=== PATIENT | female | born 1990 | race African-American/Black ===

== ENCOUNTER → 2020-03-01 13:07 | Outpatient (BNVA) | payer MEDICARE, MEDICAID, SELFPAY | PROVIDERS: PCP Nurse Practitioner Adult Health; Visit Provider Student in an Organized Health Care Education/Training Program | DX: Z76.89 Persons encountering health services in other specified circumstances (principal) | CPT/HCPCS: Q3014 ==

== ENCOUNTER 2020-03-02 16:30 | Outpatient (REF) | payer MEDICARE, MEDICAID, SELFPAY ==
[2020-03-02 17:27] LABS: Alanine Aminotransferase 11 U/L (0-31); Albumin Level 2.3 g/dL (3.5-5.0); Alkaline Phosphatase 87 U/L (39-117); Anion Gap 10 (12-20); Aspartate Amino Transferase 22 U/L (5-31); Bilirubin Total 0.3 mg/dL (0.0-1.0); Blood Urea Nitrogen 9 mg/dL (9-16); Calcium 7.8 mg/dL (8.4-10.2); Carbon Dioxide 28 mmol/L (22-29); Chloride 105 mmol/L (96-108); Estimated Glomerular Filt Rate > 60; Glucose Random 67 mg/dL (60-115); Sodium 139 mmol/L (135-145); Total Protein 6.7 g/dL (6.5-8.0)
[2020-03-02 17:55] LABS: Hematocrit 28.9 % (37-47); Hemoglobin 8.8 g/dl (12.0-16.0); Imm Gran Abs Auto 0.01 X10*3/uL (0.00-0.03); Imm Gran Pct Auto 0.3 % (0.0-0.4); Lymphocytes Absolute Auto 0.9 X10*3/uL (1.2-4.9); Lymphocytes Percent Auto 30.1 % (20-40); MANUAL DIFF FLAG SCAN; Mean Corpuscular HGB Conc 30.4 g/dl (31.0-35.0); Mean Corpuscular Hemoglobin 27.3 pg (27.0-33.0); Mean Corpuscular Volume 89.8 fL (80-98); Mean Platelet Volume 10.8 fL (9.4-12.3); Monocytes Absolute Auto 0.2 X10*3/uL (0.1-1.2); Monocytes Percent Auto 7.4 % (2-11); Neutrophils Absolute Auto 1.9 X10*3/uL (2.0-8.3); Neutrophils Percent Auto 62.2 % (45-73); Platelet Count 224 X10*3/uL (160-400); Red Blood Count 3.22 X10*6/uL (4.20-5.50); Red Cell Distribution Width 17.2 % (11.0-16.0); SCAN SMEAR FLAG 1
[2020-03-02 18:13] LABS: SLIDE REVIEW VERIFIED
[2020-03-02 19:03] LABS: Erythrocyte Sedimentation Rate 106 MM/HR (0-20)
[2020-03-02 19:18] LABS: Creatinine Urine 83.56 mg/dL
[2020-03-02 19:25] LABS: Glucose Urine UA NEG (NEG); Leukocyte Esterase Urine NEG (NEG); Nitrite Urine NEG (NEG); Urine Blood TRACE (NEG); Urine Ketones NEG (NEG); Urine Protein 3+ MG/DL (NEG-TRACE)
[2020-03-02 19:30] LABS: Appearance Urine CLEAR; Color Urine YELLOW
[2020-03-02 19:33] LABS: Protein/Creatinine Ratio, Ur 8.66 (<0.2); Total Protein Urine Random 724 mg/dL (<12)
[2020-03-02 19:46] LABS: Squamous Epithelial Cell Urine 1+ /LPF
[2020-03-03 12:53] LABS: Anti DNA DS Antibody 110 IU/mL
[2020-03-03 13:17] LABS: Complement C3 51 mg/dL (83-193)
== END 2020-03-02 16:31 | disposition home or self-care (01) ==
LOC: HO.LAB 16:30
PROVIDERS: Visit Provider Student in an Organized Health Care Education/Training Program
DX: M32.9 Systemic lupus erythematosus, unspecified (principal)
CPT/HCPCS: 36415; 80053; 81001; 84156; 85025; 85652; 86140; 86160; 86225

== ENCOUNTER → 2020-03-23 14:19 | Outpatient (BNVA) | payer MEDICARE, MEDICAID, SELFPAY | PROVIDERS: PCP Nurse Practitioner Adult Health; Visit Provider Student in an Organized Health Care Education/Training Program | DX: Z13.89 Encounter for screening for other disorder (principal) | CPT/HCPCS: Q3014 ==

== ENCOUNTER 2020-03-29 10:01 | Outpatient (REF) | payer MEDICARE, MEDICAID, SELFPAY ==
--- NOTE | 2020-03-29 10:08 | XR_ITS ---
EXAMINATION: XR FOOT, LEFT CLINICAL INFORMATION: Lupus COMPARISON: None TECHNIQUE: AP, lateral, and oblique views of the left foot. FINDINGS: Bone alignment is normal. No fracture or dislocation is seen. Joint spaces are normal. No erosions are seen. Soft tissues are normal. XR/XR foot LT 2V IMPRESSION: Normal left foot.
[2020-03-29 10:59] LABS: MANUAL DIFF FLAG NO
[2020-03-29 11:02] LABS: Eosinophils Percent Auto 0.3 % (0-4); Hematocrit 32.6 % (37-47); Imm Gran Abs Auto 0.03 X10*3/uL (0.00-0.03); Imm Gran Pct Auto 0.5 % (0.0-0.4); Lymphocytes Absolute Auto 1.1 X10*3/uL (1.2-4.9); Lymphocytes Percent Auto 19.4 % (20-40); Mean Corpuscular HGB Conc 30.7 g/dl (31.0-35.0); Mean Corpuscular Hemoglobin 28.2 pg (27.0-33.0); Mean Corpuscular Volume 92.1 fL (80-98); Mean Platelet Volume 10.6 fL (9.4-12.3); Monocytes Absolute Auto 0.4 X10*3/uL (0.1-1.2); Monocytes Percent Auto 6.8 % (2-11); Neutrophils Absolute Auto 4.3 X10*3/uL (2.0-8.3); Platelet Count 209 X10*3/uL (160-400); Red Blood Count 3.54 X10*6/uL (4.20-5.50); Red Cell Distribution Width 16.8 % (11.0-16.0); White Blood Count 5.9 X10*3/uL (4.8-10.8)
[2020-03-29 11:11] LABS: Glucose Urine UA NEG (NEG); Leukocyte Esterase Urine TRACE (NEG); Nitrite Urine NEG (NEG); Urine Blood 3+ (NEG); Urine Ketones NEG (NEG); Urine Protein 3+ MG/DL (NEG-TRACE)
[2020-03-29 11:15] LABS: Appearance Urine HAZY; Color Urine YELLOW
[2020-03-29 11:27] LABS: Amorphous Sediment Urine 1+ /LPF; Bacteria Urine 1+ /LPF; Squamous Epithelial Cell Urine 1+ /LPF
[2020-03-29 11:39] LABS: Creatinine Urine 69.32 mg/dL
[2020-03-29 11:45] LABS: Alanine Aminotransferase 17 U/L (0-31); Albumin Level 2.2 g/dL (3.5-5.0); Alkaline Phosphatase 75 U/L (39-117); Anion Gap 13 (12-20); Aspartate Amino Transferase 19 U/L (5-31); Bilirubin Total 0.2 mg/dL (0.0-1.0); Blood Urea Nitrogen 19 mg/dL (9-16); C Reactive Protein 0.54 mg/dL (< or = 0.50); Calcium 7.6 mg/dL (8.4-10.2); Carbon Dioxide 27 mmol/L (22-29); Chloride 102 mmol/L (96-108); Estimated Glomerular Filt Rate > 60; Glucose Random 76 mg/dL (60-115); Potassium 4.5 mmol/l (3.3-5.1); Sodium 137 mmol/L (135-145); Total Protein 5.6 g/dL (6.5-8.0)
[2020-03-29 12:09] LABS: Protein/Creatinine Ratio, Ur 7.47 (<0.2); Total Protein Urine Random 518 mg/dL (<12)
[2020-03-29 13:00] LABS: Erythrocyte Sedimentation Rate 83 MM/HR (0-20)
[2020-03-30 13:28] LABS: Anti DNA DS Antibody 56 IU/mL; Complement C3 52 mg/dL (83-193)
== END 2020-03-29 10:02 | disposition home or self-care (01) ==
LOC: HO.LAB 10:01
PROVIDERS: Visit Provider Student in an Organized Health Care Education/Training Program
DX: M32.9 Systemic lupus erythematosus, unspecified (principal)
CPT/HCPCS: 36415; 73620; 80053; 81001; 84156; 85025; 85652; 86140; 86160; 86225

== ENCOUNTER 2020-06-09 11:47 | Outpatient (REF) | payer MEDICARE, MEDICAID, SELFPAY ==
--- NOTE | ~2020-06-09 | XR_ITS ---
EXAMINATION: XR CHEST CLINICAL INFORMATION: Systemic lupus COMPARISON: 11/22/2014 TECHNIQUE: 2 views of the chest were obtained. FINDINGS: Normal symmetric lung volumes. No parenchymal consolidation. No pleural effusion. No pneumothorax. Cardiomediastinal silhouette and pulmonary vascularity are within normal limits. No acute osseous abnormalities. XR/XR chest 2V IMPRESSION: Unremarkable examination.
[2020-06-09 13:18] LABS: MANUAL DIFF FLAG NO
[2020-06-09 13:27] LABS: Basophils Percent Auto 0.1 % (0-2); Hematocrit 30.4 % (37-47); Imm Gran Abs Auto 0.12 X10*3/uL (0.00-0.03); Imm Gran Pct Auto 1.2 % (0.0-0.4); Lymphocytes Absolute Auto 1.4 X10*3/uL (1.2-4.9); Lymphocytes Percent Auto 13.9 % (20-40); Mean Corpuscular HGB Conc 29.6 g/dl (31.0-35.0); Mean Corpuscular Hemoglobin 28.5 pg (27.0-33.0); Mean Corpuscular Volume 96.2 fL (80-98); Monocytes Absolute Auto 0.6 X10*3/uL (0.1-1.2); Monocytes Percent Auto 5.8 % (2-11); Neutrophils Absolute Auto 7.8 X10*3/uL (2.0-8.3); Platelet Count 223 X10*3/uL (160-400); Red Blood Count 3.16 X10*6/uL (4.20-5.50); Red Cell Distribution Width 15.1 % (11.0-16.0); White Blood Count 9.9 X10*3/uL (4.8-10.8)
[2020-06-09 13:44] LABS: Glucose Urine UA NEG (NEG); Leukocyte Esterase Urine NEG (NEG); Nitrite Urine NEG (NEG); PH 7.5 (5.0-8.0); Specific Gravity - Urine 1.025 (1.005-1.025); Urine Blood NEG (NEG); Urine Ketones NEG (NEG); Urine Protein 2+ MG/DL (NEG-TRACE)
[2020-06-09 13:48] LABS: Appearance Urine CLEAR; Color Urine YELLOW
[2020-06-09 14:03] LABS: Alanine Aminotransferase 32 U/L (0-31); Albumin Level 2.9 g/dL (3.5-5.0); Alkaline Phosphatase 77 U/L (39-117); Anion Gap 13 (12-20); Aspartate Amino Transferase 17 U/L (5-31); Bilirubin Total < 0.2 mg/dL (0.0-1.0); Blood Urea Nitrogen 24 mg/dL (9-16); C Reactive Protein 1.72 mg/dL (< or = 0.50); Calcium 8.3 mg/dL (8.4-10.2); Carbon Dioxide 27 mmol/L (22-29); Chloride 106 mmol/L (96-108); Estimated Glomerular Filt Rate > 60; Glucose Random 99 mg/dL (60-115); Potassium 4.1 mmol/L (3.3-5.1); Sodium 142 mmol/L (135-145); Total Protein 5.6 g/dL (6.5-8.0)
[2020-06-09 14:17] LABS: Erythrocyte Sedimentation Rate 91 MM/HR (0-20)
[2020-06-09 14:18] LABS: Bacteria Urine 1+ /LPF; Squamous Epithelial Cell Urine 1+ /LPF
[2020-06-09 14:42] LABS: Creatinine Urine 81.39 mg/dL; Total Protein Urine Random 374 mg/dL (<12)
[2020-06-10 13:07] LABS: Anti DNA DS Antibody 15 IU/mL; Complement C3 107 mg/dL (83-193)
== END 2020-06-09 11:48 | disposition home or self-care (01) ==
LOC: HO.LAB 11:47
PROVIDERS: Absent Provider Internal Medicine Nephrology; Visit Provider Student in an Organized Health Care Education/Training Program
DX: M32.14 Glomerular disease in systemic lupus erythematosus (principal); H53.8 Other visual disturbances; Z79.899 Other long term (current) drug therapy
CPT/HCPCS: 36415; 71046; 80053; 81001; 82306; 84156; 85025; 85652; 86140; 86160; 86225; 99212

== ENCOUNTER → 2020-06-13 09:45 | Outpatient (BNVA) | payer MEDICARE, MEDICAID, SELFPAY | PROVIDERS: PCP Urology; Visit Provider Nurse Practitioner Family | DX: M32.9 Systemic lupus erythematosus, unspecified (principal); G89.29 Other chronic pain | CPT/HCPCS: 99202 ==

== ENCOUNTER → 2020-06-21 10:37 | Outpatient (BNVA) | payer MEDICARE, MEDICAID, SELFPAY | PROVIDERS: PCP Urology; Visit Provider Nurse Practitioner Family | DX: M32.9 Systemic lupus erythematosus, unspecified (principal); G89.29 Other chronic pain | CPT/HCPCS: 99212 ==

== ENCOUNTER 2020-09-13 12:51 | Outpatient (REF) | payer MEDICARE, MEDICAID, SELFPAY ==
[2020-09-13 14:08] LABS: MANUAL DIFF FLAG NO
[2020-09-13 14:16] LABS: Eosinophils Percent Auto 0.1 % (0-4); Hematocrit 34.2 % (37-47); Hemoglobin 10.9 g/dl (12.0-16.0); Imm Gran Abs Auto 0.04 X10*3/uL (0.00-0.03); Imm Gran Pct Auto 0.5 % (0.0-0.4); Lymphocytes Absolute Auto 1.6 X10*3/uL (1.2-4.9); Lymphocytes Percent Auto 19.7 % (20-40); Mean Corpuscular HGB Conc 31.9 g/dl (31.0-35.0); Mean Corpuscular Hemoglobin 27.9 pg (27.0-33.0); Mean Corpuscular Volume 87.7 fL (80-98); Mean Platelet Volume 10.5 fL (9.4-12.3); Monocytes Absolute Auto 0.5 X10*3/uL (0.1-1.2); Monocytes Percent Auto 6.4 % (2-11); Neutrophils Absolute Auto 6.1 X10*3/uL (2.0-8.3); Neutrophils Percent Auto 73.3 % (45-73); Platelet Count 281 X10*3/uL (160-400); Red Cell Distribution Width 13.1 % (11.0-16.0); White Blood Count 8.3 X10*3/uL (4.8-10.8)
[2020-09-13 14:21] LABS: Alanine Aminotransferase 13 U/L (0-31); Albumin Level 3.4 g/dL (3.5-5.0); Alkaline Phosphatase 73 U/L (39-117); Anion Gap 16 (12-20); Aspartate Amino Transferase 15 U/L (5-31); Bilirubin Total 0.3 mg/dL (0.0-1.0); Blood Urea Nitrogen 13 mg/dL (9-16); C Reactive Protein 0.31 mg/dL (< or = 0.50); Calcium 9.1 mg/dL (8.4-10.2); Carbon Dioxide 19 mmol/L (22-29); Chloride 107 mmol/L (96-108); Estimated Glomerular Filt Rate > 60; Glucose Random 97 mg/dL (60-115); Potassium 3.7 mmol/L (3.3-5.1); Sodium 138 mmol/L (135-145)
[2020-09-13 14:26] LABS: Glucose Urine UA NEG (NEG); Leukocyte Esterase Urine 1+ (NEG); Nitrite Urine NEG (NEG); PH 6.5 (5.0-8.0); Specific Gravity - Urine 1.025 (1.005-1.025); Urine Blood NEG (NEG); Urine Ketones NEG (NEG); Urine Protein 3+ MG/DL (NEG-TRACE)
[2020-09-13 14:28] LABS: Appearance Urine CLOUDY; Color Urine YELLOW
[2020-09-13 14:48] LABS: Bacteria Urine 1+ /LPF; RBC Urine 0 /HPF (0); Squamous Epithelial Cell Urine 2+ /LPF
[2020-09-13 14:49] LABS: Amorphous Sediment Urine 1+ /LPF
[2020-09-13 14:52] LABS: Creatinine Urine 172.75 mg/dL
[2020-09-13 15:06] LABS: Protein/Creatinine Ratio, Ur 2.49 (<0.2); Total Protein Urine Random 430 mg/dL (<12)
[2020-09-13 16:05] LABS: Erythrocyte Sedimentation Rate 70 MM/HR (0-20)
[2020-09-14 14:12] LABS: Complement C3 62 mg/dL (83-193)
[2020-09-15 13:17] LABS: Anti DNA DS Antibody 11 IU/mL
== END 2020-09-13 12:52 | disposition home or self-care (01) ==
LOC: HO.LAB 12:51
PROVIDERS: PCP Urology; Visit Provider Student in an Organized Health Care Education/Training Program
DX: M32.9 Systemic lupus erythematosus, unspecified (principal)
CPT/HCPCS: 36415; 80053; 81001; 84156; 85025; 85652; 86140; 86160; 86225; 99212

== ENCOUNTER 2023-05-09 11:12 | Outpatient (AMB) | payer OTHER, SELFPAY ==
--- NOTE | 2023-05-09 11:22 | A.OFFVIS_ITS ---
Intake Vital Signs 05/09/23 11:23 Height 5 ft 5 in Weight 220 lb 10.923 oz BMI 36.7 BP 102/80 Blood Pressure Location Rt brachial Position Sitting Pulse 104 H Pulse Source Pulse Oximeter Temp 97 F Temp Source Skin Pulse Oximetry (%) 98 Oxygen Delivery Method Room Air Intake Visit Reasons: SLE Intake Note: Patient last seen 09/13/[address] Wang, presents today for lupus. Reports she is scheduled for a total hip replacement at [facility], booked for 06/04/23. 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 Coles, 33-year-old female last seen in the office September 2020 returns for follow-up and to establish care for systemic lupus erythematous due to pending left hip surgery. She is accompanied by her cousin. Patient reports she was being [facility]. She has lupus since she was 10 years old and has tried several medications. Currently she is taking prednisone 30 mg per day which she says is the only thing that can keep her lupus under control. Her main concern today is her left hip avascular necrosis for which she has surgery scheduled for June 03 2023. Has outlined below in prior HPI, the patient reiterates that she did have stem cell treatment to the left hip. However the effects did not last. Her hip has since worsened and things have worsened. The patient was hospitalized recently and imaging showed that the left acetabular neck has collapsed. She has fallen multiple times while walking, she has also fallen while getting out of bed She requires a rolling walker to assist with walking and her house is being fitted with a hospital bed. The patient has not followed with Ophthalmology or Nephrology in over 1 year. This is significant because she has known history of lupus nephritis. She also has not followed up with her neurologist. Per patient her lupus flares characterized by migraine-like headaches, nausea and vomiting. Historically she has had aseptic meningitis and was hospitalized for 1 month. States she has no current medication for GERD and would like some. She has not been following with Neurology or Nephrology. Orthopedic doctor Delma Last visit 09/13/2020 Dr. Wang 30yoF presents for follow-up of SLE. Las t seen In June 2020. History: Patient was diagnosed with lupus at age 20 manifesting with rash, photosensitivity, joint pain and swelling, nephritis s/p biopsy (folllows with Dr Zimmerman), no seizures, no oral ulcers, no serositis. Previously treated with cellcept and prednisone . She tried methotrexate but could not tolerate it. She was allergic to plaquenil. She had adverse reaction to azathioprine. Stopped Cellcept in 2016 as she had brain fog while she was on it so she stopped the med on her own. She has a history of left hip avascular necrosis. She did not undergo surgery for this, she instead flew to [place] and had stem cell treatments done. June 2020: Patient hospitalized Patient at [facility] [place] from April to May 2020. She had worsening lupus nephritis and received pulse dose steroids and was then started on CellCept 1 g b.i.d. as well as high-dose prednisone. During that hospitalization, she was also found to have aseptic meningitis . She is currently following regularly with her armoured corps officer and her prednisone has been tapered down to 30 mg daily. She did have a repeat kidney biopsy done which demonstrated class IV/V lupus nephritis. She currently reports blurry vision and a lightheaded sensation when she stands up. She has not followed up with her neurologist. She was seen by Ophthalmology while hospitalized for her blurry vision and was told she may have a problem with her retina . It was advised that she see a retina specialist however she has not yet made an appointment. She reports some improvement of the skin rash on her face as well as the rash on her fingers. She continues to have some joint pain and swelling. She reports fatigue that lasts all day long as well as some subjective weakness. She is able to walk without assistance currently currently . Today: Discharged from Pain Mgmt at [facility] due to no-showing 3 appts - states that she did not have a car and was unable to attend her appts however she did not call to cancel. States that her PCP will be referring her to Pain Mgmt at [facility]. Continues to follow with Nephro - last visit was June 2020. She was to taper down her prednisone but states that she was unable to taper due to worsening pain so she continues to take 40mg daily. Also has not yet started on Voclosporin but cannot tell me why. [facility] Medical History (Updated 05/14/23 @ 14:11 by NIGHAT Davis) Aseptic meningitis Lupus nephritis, ISN/RPS class IV Avascular necrosis of bone of left hip SLE (systemic lupus erythematosus related syndrome) Lupus Surgical History Hx of adenoidectomy Hx of cholecystectomy Family History Mother Lupus Father CVD (cardiovascular disease) Social History Alcohol intake: never Patient Tobacco Use Status: Never used Tobacco e-Cigarette/Vaping Use: Never Used Review of Systems Const All systems reviewed & are unremarkable except as noted in HPI and below Physical Exam Vital Signs: Last Vital Signs Temp 97 F 05/09/23 11:23 Pulse 104 H 05/09/23 11:23 BP 102/80 05/09/23 11:23 Pulse Ox 98 05/09/23 11:23 Oxygen Delivery Method Room Air 05/09/23 11:23 BMI result Body Mass Index 36.7 APPEARANCE: Patient in no acute distress, groomed and nourished EYES no redness, normal EARS:? External ear normal. NOSE/SINUS:? Airflow through both nares, no nasal discharge, no bleeding THROAT:? Oral mucosa moist, no ulcerations NECK:? No thyromegaly or masses, no adenopathy, trachea midline. HEART:? Regular rhythm, S1-S2 heard, no murmurs, rubs or gallops. LUNG:? Clear to percussion and auscultation EXTREMITIES:? No edema, no calf tenderness, normal peripheral pulses. NEURO:? Oriented and alert x3.? No focal weakness.? Reflexes symmetric.? Antalgic gait SKIN:? There are no skin lesions evident. No objective signs of Raynaud's phenomenon. JOINT EXAM: Cervical Spine:.? Full range of motion without pain; mild to moderate tenderness. Thoracic Spine:.? No scoliosis.? Mild to moderate tenderness on palpation. Lumbar Spine:.? Alignment normal.? Limited range of motion without pain, mild tenderness. Chest Wall:.? No tenderness, swelling, increased warmth or erythema. Hands:.? Normal pain-free range of motion with tenderness, swelling, increased warmth and erythema. Able to make a full fist and has a good assistant quality manager strength. Wrists:.? Normal pain-free range of motion without tenderness, swelling, increased warmth or erythema. Elbows:. Normal pain-free range of motion without tenderness, swelling, increased warmth or erythema. Shoulders:.?? Full range of motion without pain. No tenderness, weakness, swelling, increased warmth or erythema. Hips:.? Full range of motion without pain. Hip bursa:.? No tenderness. Knees:.?? Normal pain-free range of motion without tenderness, swelling, increased warmth or erythema.? There is no effusion or crepitation Ankles:.? Normal pain-free range of motion with some tenderness but swelling, increased warmth or erythema. Feet:.? Normal pain-free range of motion without tenderness, swelling, increased warmth or erythema. Tender points:? No tenderness to digital palpation at the occiput, trapezius, second rib, lateral epicondyle, knees, greater trochanter and gluteal area bilaterally. ? Assessment & Plan Assessment & Plan (1) Lupus: Code(s): M32.9 - Systemic lupus erythematosus, unspecified (2) SLE (systemic lupus erythematosus related syndrome): Code(s): M32.9 - Systemic lupus erythematosus, unspecified (3) Avascular necrosis of bone of left hip: Code(s): M87.052 - Idiopathic aseptic necrosis of left femur (4) Lupus nephritis, ISN/RPS class IV: Code(s): M32.14 - Glomerular disease in systemic lupus erythematosus (5) Aseptic meningitis: Comment: History of Code(s): G03.0 - Nonpyogenic meningitis Plan Patient was diagnosed with lupus at age 20 manifesting with rash, photosensitivity, joint pain and swelling, nephritis s/p biopsy (folllows with Dr Zimmerman), no seizures, no oral ulcers, no serositis. Previously treated with cellcept and prednisone . She tried methotrexate but could not tolerate it. She was allergic to plaquenil. She had adverse reaction to azathioprine. She self- stopped Cellcept in 2017 as she reported brain fog while she was on it. She has a history of left hip avascular necrosis. Instead of undergoing surgery for the left hip, she opted to fly to [place] and had stem cell treatments done. Any effectiveness of the treatment was not sustained, the head of the femur has since collapsed and she now requires surgery to resolve. The patient is schedule for left Hip surgery. Upon reviewing her history and current disease status, I do not think patient can be surgery ready for June 02.. She has not been following with her Cigarette Filter Inspector or neurology. It is documented that she has class IV/V Lupus Nephritis and has a history of hospitalization for this. It is apparent in her history that she cannot sustain on less than 30 mg Prednisone without being in crisis. She is currently on no other medication. If she is to stop the prednisone for surgery, we should attempt to stabilize her on some other immunosuppressant medication. The paradox however is that this medication will need to be stopped at least two weeks before and after surgery. She will also need pulse doses of steroids during surgery. It is also clear on PE that she has active disease. Her hands are swollen, red warm and tender. Prior attempts were made to start patient on Volcosporin but this was not successful. I reached to Dr. Nguyễn, [facility] and not successful. Will continue to try and contact. Follow-up in two weeks I spent 70 minutes reviewing history, assessing and discussing with patient, contacting other providers and Documenting Orders: Orders LALITHA Reflex Titer and Pattern 05/09/23 G.29 - Other chronic pain, M32.9 - Systemic lupus erythematosus, unspecified Complement C4 05/09/23 G89.29 - Other chronic pain, M32.9 - Systemic lupus erythematosus, unspecified Complement C3 05/09/23 G89.29 - Other chronic pain, M32.9 - Systemic lupus erythematosus, unspecified C Reactive Protein 05/09/23 G.29 - Other chronic pain, M32.9 - Systemic lupus erythematosus, unspecified DNA Double Stranded-Crithidia 05/09/23 G.29 - Other chronic pain, M32.9 - Systemic lupus erythematosus, unspecified UA w Microscopic 05/09/23 - Other chronic pain, M32.9 - Systemic lupus erythematosus, unspecified Anti Extractable Nuclear Ag 05/09/23 - Other chronic pain, M32.9 - Systemic lupus erythematosus, unspecified T Spot TB 05/09/23 - Other chronic pain, M32.9 - Systemic lupus erythematosus, unspecified Scleroderma 70 Antibody 05/09/23 - Other chronic pain, M32.9 - Systemic lupus erythematosus, unspecified Anti DNA DS Antibody 05/09/23. - Other chronic pain, M32.9 - Systemic lupus erythematosus, unspecified Lupus Anticoagulant Panel 05/09/23 - Other chronic pain, M32.9 - Systemic lupus erythematosus, unspecified Erythrocyte Sedimentation Rate 05/09/23 - Other chronic pain, M32.9 - Systemic lupus erythematosus, unspecified Sjogren's Antibodies 05/09/23 - Other chronic pain, M32.9 - Systemic lupus erythematosus, unspecified Protein Creatinine Ratio, Ur 05/09/23 - Other chronic pain, M32.9 - Systemic lupus erythematosus, unspecified Hepatitis A,B,C Profile 05/09/23 - Other chronic pain, M32.9 - Systemic lupus erythematosus, unspecified Medications: New prednisone 6 tablets per day x 3 days 5 tablets per day x 3 days 4 tablets per day x 3 days 3 tablets per day x 3 days 2 tablets per day x 2 days 1 tablet per day x 2 days stop. 60 tabs 0RF M32.9 - Systemic lupus erythematosus, unspecified pantoprazole 40 mg PO DAILY 90 tabs 1RF M32.9 - Systemic lupus erythematosus, unspecified Discontinued prednisone Discontinued Reason: Doctor's Order Take 4 tabs by mouth once daily for 1 week then 3 tabs once daily for 1 week then 2 tabs daily for 1 week then 1 tab daily for 1 week then stop 70 tabs 0RF Coding Level of Care Code New Pt Level 5 (36858) Diagnoses Lupus M32.9 SLE (systemic lupus erythematosus related syndrome) M32.9 Avascular necrosis of bone of left hip M87.052 Lupus nephritis, ISN/RPS class IV M32.14 Aseptic meningitis G03.0
[2023-05-09 11:23] VITALS: BP 102/80; PULSE 104; TEMP 36.1; O2SAT 98; BMI 36.7
== END 2023-05-09 12:18 | disposition home or self-care (01) ==
PROVIDERS: PCP Urology; Visit Provider Nurse Practitioner Family
DX: M32.9 Systemic lupus erythematosus, unspecified (principal); M87.052 Idiopathic aseptic necrosis of left femur; M32.14 Glomerular disease in systemic lupus erythematosus; G03.0 Nonpyogenic meningitis
CPT/HCPCS: 99205; 99215

== ENCOUNTER → 2023-05-09 11:12 | Outpatient (BNVA) | payer MEDICARE, MEDICAID, SELFPAY | PROVIDERS: PCP Urology; Visit Provider Nurse Practitioner Family | DX: M32.9 Systemic lupus erythematosus, unspecified (principal); M87.052 Idiopathic aseptic necrosis of left femur; G03.0 Nonpyogenic meningitis; M32.14 Glomerular disease in systemic lupus erythematosus | CPT/HCPCS: 99202 ==

== ENCOUNTER 2023-05-31 11:39 | Outpatient (AMB) | payer MEDICARE, MEDICAID, SELFPAY ==
--- NOTE | 2023-05-31 11:40 | A.OFFVIS_ITS ---
Intake Vital Signs 05/31/23 11:46 Height 5 ft 5 in Weight 214 lb 15.211 oz BMI 35.8 BP 116/80 Blood Pressure Location Rt brachial Position Sitting Pulse 106 H Pulse Source Pulse Oximeter Temp 97.0 F Temp Source Skin Pulse Oximetry (%) 97 Oxygen Delivery Method Room Air Intake Visit Reasons: SLE/ UNABLE TO LVM Intake Note: Patient last seen 05/09/23 by Jay, presents today for follow up and test results. Patient reports feeling malaise. Radio Producer Required: No Accompanied by: Self / Same As Patient Allergies azathioprine [Imuran] Allergy (Intermediate, Verified 05/31/23 11:40) Hives hydroxychloroquine [From PLAQUENIL] Allergy (Intermediate, Verified 05/31/23 11:40) HIVES, FACIAL SWELLING NSAIDS (Non-Steroidal Anti-Inflamma [NSAIDS (NON-STEROIDAL ANTI-INFLAMMA] Allergy (Intermediate, Verified 05/31/23 11:40) HIVES, FACIAL SWELLING metoclopramide [From Reglan] Adverse Reaction (Severe, Verified 05/31/23 11:40) severe muscle spasms HPI HPI Comments History of Present Illness Details Ms. Coles returns for follow-up to discuss her labs and readiness for left hip surgery. Her surgery was scheduled for June 02 and she is not pleased that it was not was canceled. She continues to be in great pain. Given the reduction in prednisone she is experiencing more discomfort and rash if erupting on her face. She did meet with her nephrologists who is pleased with her kidney function per patient. She has an upcoming appointment with her neurologist. He is currently on 10 mg of prednisone. Patient missed her last scheduled appointment with thony. Was delayed in obtaining labs. Patient eventually did labs when she learned that her surgical redness was affected. Ms. Coles, 33-year-old female last seen in the office September 2020 returns for follow-up and to establish care for systemic lupus erythematous due to pending left hip surgery. She is accompanied by her cousin. Patient reports she was [facility]. She has lupus since she was 10 years old and has tried several medications. Currently she is taking prednisone 30 mg per day which she says is the only thing that can keep her lupus under control. Her main concern today is her left hip avascular necrosis for which she has surgery scheduled for June 03 2023. Has outlined below in prior HPI, the patient reiterates that she did have stem cell treatment to the left hip. However the effects did not last. Her hip has since worsened and things have worsened. The patient was hospitalized recently and imaging showed that the left acetabular neck has collapsed. She has fallen multiple times while walking, she has also fallen while getting out of bed She requires a rolling walker to assist with walking and her house is being fitted with a hospital bed. The patient has not followed with Ophthalmology or Nephrology in over 1 year. This is significant because she has known history of lupus nephritis. She also has not followed up with her neurologist. Per patient her lupus flares characterized by migraine-like headaches, nausea and vomiting. Historically she has had aseptic meningitis and was hospitalized for 1 month. States she has no current medication for GERD and would like some. She has not been following with Neurology or Nephrology. Orthopedic doctor Delma Last visit 09/13/2020 Dr. Wang 30yoF presents for follow-up of SLE. Las t seen In June 2020. History: Patient was diagnosed with lupus at age 20 manifesting with rash, photosensitivity, joint pain and swelling, nephritis s/p biopsy (folllows with Dr Zimmerman), no seizures, no oral ulcers, no serositis. Previously treated with cellcept and prednisone . She tried methotrexate but could not tolerate it. She was allergic to plaquenil. She had adverse reaction to azathioprine. Stopped Cellcept in 2016 as she had brain fog while she was on it so she stopped the med on her own. She has a history of left hip avascular necrosis. She did not undergo surgery for this, she instead flew to [place] and had stem cell treatments done. June 2020: Patient hospitalized Patient at [facility] from April to May 2020. She had worsening lupus nephritis and received pulse dose steroids and was then started on CellCept 1 g b.i.d. as well as high-dose prednisone. During that hospitalization, she was also found to have aseptic meningitis . She is currently following regularly with her logistics management specialist and her prednisone has been tapered down to 30 mg daily. She did have a repeat kidney biopsy done which demonstrated class IV/V lupus nephritis. She currently reports blurry vision and a lightheaded sensation when she stands up. She has not followed up with her neurologist. She was seen by Ophthalmology while hospitalized for her blurry vision and was told she may have a problem with her retina . It was advised that she see a retina specialist however she has not yet made an appointment. She reports some improvement of the skin rash on her face as well as the rash on her fingers. She continues to have some joint pain and swelling. She reports fatigue that lasts all day long as well as some subjective weakness. She is able to walk without assistance currently currently . Today: [place] [facility] [place]showing 3 appts - states that she did not have a car and was unable to attend her appts however she did not call to cancel. States that her PCP will be referring her to Pain Mgmt at [facility]. Continues to follow with Nephro - last visit was June 2020. She was to taper down her prednisone but states that she was unable to taper due to worsening pain so she continues to take 40mg daily. Also has not yet started on Voclosporin but cannot tell me why. [facility] Medical History (Updated 05/14/23 @ 14:11 by NIGHAT Davis) Aseptic meningitis Lupus nephritis, ISN/RPS class IV Avascular necrosis of bone of left hip SLE (systemic lupus erythematosus related syndrome) Lupus Surgical History Hx of adenoidectomy Hx of cholecystectomy Family History Mother Lupus Father CVD (cardiovascular disease) Social History Alcohol intake: never Patient Tobacco Use Status: Never used Tobacco e-Cigarette/Vaping Use: Never Used Physical Exam Vital Signs: Last Vital Signs Temp 97.0 F 05/31/23 11:46 Pulse 106 H 05/31/23 11:46 BP 116/80 05/31/23 11:46 Pulse Ox 97 05/31/23 11:46 Oxygen Delivery Method Room Air 05/31/23 11:46 BMI result Body Mass Index 35.8 APPEARANCE: Patient in no acute distress, groomed and nourished EYES no redness, normal EARS:? External ear normal. NOSE/SINUS:? Airflow through both nares, no nasal discharge, no bleeding THROAT:? Oral mucosa moist, no ulcerations NECK:? No thyromegaly or masses, no adenopathy, trachea midline. HEART:? Regular rhythm, S1-S2 heard, no murmurs, rubs or gallops. LUNG:? Clear to percussion and auscultation EXTREMITIES:? No edema, no calf tenderness, normal peripheral pulses. NEURO:? Oriented and alert x3.? No focal weakness.? Reflexes symmetric.? Antalgic gait SKIN:? Scattered erythematous papules to cheeks and chin. No objective signs of Raynaud's phenomenon. JOINT EXAM: Hands:.? Normal pain-free range of motion with tenderness, swelling, increased warmth and erythema. Able to make a full fist and has a good termite control servicer strength. Hips:.? Decreased range of motion with pain [id number] . Walks with a limp Hip bursa:.? Moderate to severe tenderness bilaterally tenderness. Knees:.?? Normal pain-free range of motion wit diffuse tenderness, but no swelling, increased warmth or erythema.? There is no effusion or crepitation Tender points:? tenderness to digital palpation at the occiput, trapezius, second rib, lateral epicondyle, knees, greater trochanter and gluteal area bilaterally. ? Results Reviewed Results Reviewed: Positive and double-stranded DNA equals 30, C3 and C4; 14 and 72 respectively; sed rate 32 Assessment & Plan Assessment & Plan (1) Lupus: Code(s): M32.9 - Systemic lupus erythematosus, unspecified (2) SLE (systemic lupus erythematosus related syndrome): Code(s): M32.9 - Systemic lupus erythematosus, unspecified (3) Avascular necrosis of bone of left hip: Code(s): M87.052 - Idiopathic aseptic necrosis of left femur (4) Lupus nephritis, ISN/RPS class IV: Code(s): M32.14 - Glomerular disease in systemic lupus erythematosus Plan Discussed with patient surgical readiness and the importance of stable disease state. Overall she is maintaining. Her labs does show active disease. We will start Mycophenalate 500 mg BID and Continue the Prednisone 10mg per day which is her current dose of prednsione. I will reach out to discuss further with Ortho. Per patient he was satisfied with her reduced dose of Prednisone to do surgery. 30 minutes with patient to discuss disease state, treatment pang and documenting. F/u 2 months 05/09/2023 Initial: Patient was diagnosed with lupus at age 20 manifesting with rash, photosensitivity, joint pain and swelling, nephritis s/p biopsy (folllows with Dr Zimmerman), no seizures, no oral ulcers, no serositis. Previously treated with cellcept and prednisone . She tried methotrexate but could not tolerate it. She was allergic to plaquenil. She had adverse reaction to azathioprine. She self- stopped Cellcept in 2017 as she reported brain fog while she was on it. She has a history of left hip avascular necrosis. Instead of undergoing surgery for the left hip, she opted to fly to [place] and had stem cell treatments done. Any effectiveness of the treatment was not sustained, the head of the femur has since collapsed and she now requires surgery to resolve. The patient is schedule for left Hip surgery. Upon reviewing her history and current disease status, I do not think patient can be surgery ready for June 02.. She has not been following with her Garbage Collection Supervisor or neurology. It is documented that she has class IV/V Lupus Nephritis and has a history of hospitalization for this. It is apparent in her history that she cannot sustain on less than 30 mg Prednisone without being in crisis. She is currently on no other medication. If she is to stop the prednisone for surgery, we should attempt to stabilize her on some other immunosuppressant medication. The paradox however is that this medication will need to be stopped at least two weeks before and after surgery. She will also need pulse doses of steroids during surgery. It is also clear on PE that she has active disease. Her hands are swollen, red warm and tender. Prior attempts were made to start patient on Volcosporin but this was not successful. I reached to Dr. Nguyễn, [facility] and not successful. Will continue to try and contact. Follow-up in two weeks I spent 70 minutes reviewing history, assessing and discussing with patient, contacting other providers and Documenting Medications: New mycophenolate mofetil (CellCept) 500 mg PO BID 180 tabs 1RF M32.9 - Systemic lupus erythematosus, unspecified, M32.14 - Glomerular disease in systemic lupus erythematosus Changed From prednisone 6 tablets per day x 3 days 5 tablets per day x 3 days 4 tablets per day x 3 days 3 tablets per day x 3 days 2 tablets per day x 2 days 1 tablet per day x 2 days stop. 60 tabs 0RF M32.9 - Systemic lupus erythematosus, unspecified To prednisone 10 mg (2 x 5 mg) PO DAILY 120 tabs 1RF M32.9 - Systemic lupus erythematosus, unspecified Coding Level of Care Code Est Pt Level 3 (05352) Diagnoses Lupus M32.9 SLE (systemic lupus erythematosus related syndrome) M32.9 Avascular necrosis of bone of left hip M87.052 Lupus nephritis, ISN/RPS class IV M32.14
[2023-05-31 11:46] VITALS: BP 116/80; PULSE 106; TEMP 36.1; O2SAT 97; BMI 35.8
== END 2023-05-31 12:29 | disposition home or self-care (01) ==
LOC: HO.RHE 11:39
PROVIDERS: PCP Urology; Visit Provider Nurse Practitioner Family
DX: M32.9 Systemic lupus erythematosus, unspecified (principal); M87.052 Idiopathic aseptic necrosis of left femur; M32.14 Glomerular disease in systemic lupus erythematosus
CPT/HCPCS: 99213

== ENCOUNTER → 2023-05-31 11:39 | Outpatient (BNVA) | payer OTHER, SELFPAY | PROVIDERS: PCP Urology; Visit Provider Nurse Practitioner Family | DX: M32.9 Systemic lupus erythematosus, unspecified (principal); M87.052 Idiopathic aseptic necrosis of left femur; M32.14 Glomerular disease in systemic lupus erythematosus | CPT/HCPCS: 99212 ==